=== PATIENT | female | born 1950 | race Caucasian/White ===

== ENCOUNTER 2017-02-23 13:37 | Emergency (ER) | payer OTHER, MEDICAID ==
[~2017-02-23] VITALS: Ht 157.5 cm; Wt 82.0 kg
[2017-02-23] MEDS ORDERED: SODIUM CHLORIDE 0.9% 1,000 ML IV ONE ×2 (14:43→16:30)
[2017-02-23] MEDS ORDERED: INSULIN REGULAR (HUMULIN R) 300UNITS/3ML SUBCUT ONE (14:45)
[2017-02-23 14:59] LABS: HEMATOCRIT. 38.9 % (36.0-48.0); HEMOGLOBIN. 12.7 g/dL (12.0-16.0); LYMPHOCYTES % 21.8 % (20.0-50.0); MEAN CORPUSCULAR HEMOGLOBIN 29.7 pg (28.0-32.0); MEAN CORPUSCULAR VOLUME 91.2 fL (81.0-99.0); MEAN PLATELET VOLUME 7.8 fl (7.4-10.4); MONOCYTES % 10.2 % (2.0-8.0); PLATELET 305 x1000/uL (130-400); RED BLOOD CELL COUNT 4.27 mill/uL (4.2-5.4); RED CELL DISTRIBUTION WIDTH 13.8 % (11.6-14.6)
[2017-02-23 15:11] LABS: CARBON DIOXIDE 29 mEq/L (21-32); CHLORIDE 101 mEq/L (98-107)
[2017-02-23 15:14] LABS: BETA HYDROXYBUTYRATE 0.1 mMol/L (0.0-0.3)
[2017-02-23 15:52] LABS: CLARITY URINE CLEAR (CLEAR); COLOR URINE YELLOW (YELLOW); GLUCOSE URINE 3+ (NEGATIVE); KETONES URINE NEGATIVE (NEGATIVE); LEUKOCYTE ESTERASE URINE 2+ (NEGATIVE); NITRITE URINE POSITIVE (NEGATIVE); OCCULT BLOOD URINE NEGATIVE (NEGATIVE); PH URINE 6.5 (4.5-8.0); PROTEIN URINE NEGATIVE (NEGATIVE); SPECIFIC GRAVITY URINE 1.029 (1.005-1.030); UROBILINOGEN URINE 0.2 E.U./dL (0.2-1.0)
[2017-02-23] MEDS ORDERED: CEFTRIAXONE 1 G PREMIX 50 ML IV ONE (16:30)
[2017-02-23 18:58] VITALS: BP 140/65
== END 2017-02-23 19:10 | disposition home or self-care (01) ==
LOC: ER 14:57
DX: E11.65 Type 2 diabetes mellitus with hyperglycemia (principal); N39.0 Urinary tract infection, site not specified; R21 Rash and other nonspecific skin eruption; Z98.890 Other specified postprocedural states
CPT/HCPCS: 36415; 80053; 81001; 82010; 82962; 85025; 87086; 87186; 93005; 96361; 96365; 96372; 99285; J0696; J1815; J7030; Z7610

== ENCOUNTER 2017-03-16 09:01 | Emergency (ER) | payer OTHER, MEDICARE, MEDICAID ==
[~2017-03-16] VITALS: Ht 154.9 cm; Wt 76.0 kg
[2017-03-16 10:16] LABS: CHLORIDE 106 mEq/L (98-107)
[2017-03-16 10:20] LABS: CARBON DIOXIDE 25 mEq/L (21-32)
[2017-03-16 10:22] LABS: BASOPHILS % 0.9 % (0.0-2.0); EOSINOPHILS % 2.2 % (0.0-5.0); HEMATOCRIT. 41.7 % (36.0-48.0); HEMOGLOBIN. 14.4 g/dL (12.0-16.0); LYMPHOCYTES % 27.6 % (20.0-50.0); MEAN CORPUSCULAR HEMOGLOBIN 30.3 pg (28.0-32.0); MEAN CORPUSCULAR VOLUME 87.7 fL (81.0-99.0); MEAN PLATELET VOLUME 8.5 fl (7.4-10.4); MONOCYTES % 7.4 % (2.0-8.0); NEUTROPHILS % 61.9 % (40.0-76.0); PLATELET 284 x1000/uL (130-400); RED BLOOD CELL COUNT 4.75 mill/uL (4.2-5.4); RED CELL DISTRIBUTION WIDTH 13.2 % (11.6-14.6)
[2017-03-16] MEDS ORDERED: SODIUM CHLORIDE 0.9% 1,000 ML IV ONE (10:23)
[2017-03-16] MEDS ORDERED: ACETAMINOPHEN 325MG TABLET PO STA (10:23)
[2017-03-16 10:24] LABS: CLARITY URINE CLOUDY (CLEAR); COLOR URINE YELLOW (YELLOW); GLUCOSE URINE 3+ (NEGATIVE); KETONES URINE NEGATIVE (NEGATIVE); LEUKOCYTE ESTERASE URINE 2+ (NEGATIVE); NITRITE URINE NEGATIVE (NEGATIVE); OCCULT BLOOD URINE 1+ (NEGATIVE); PROTEIN URINE NEGATIVE (NEGATIVE); SPECIFIC GRAVITY URINE 1.027 (1.005-1.030); UROBILINOGEN URINE 0.2 E.U./dL (0.2-1.0)
[2017-03-16 10:26] LABS: PROTHROMBIN TIME 9.9 sec
[2017-03-16] MEDS ORDERED: CEFTRIAXONE SODIUM 1 G/VIAL IV ONE (12:00)
[2017-03-16] MEDS ORDERED: CEFTRIAXONE 1 G PREMIX 50 ML IV ONE (12:15)
[2017-03-16 15:25] VITALS: BP 169/79
== END 2017-03-16 15:28 | disposition home or self-care (01) ==
LOC: ER 09:58
DX: N39.0 Urinary tract infection, site not specified (principal); R21 Rash and other nonspecific skin eruption; E78.00 Pure hypercholesterolemia, unspecified; E11.9 Type 2 diabetes mellitus without complications; I10 Essential (primary) hypertension
CPT/HCPCS: 36415; 71010; 80053; 81001; 82962; 83690; 85025; 85610; 93005; 93971; 96361; 96365; 96366; 99285; J0696; J7030; Z7610; A4315

== ENCOUNTER 2017-10-11 03:12 | Emergency (ER) | payer OTHER, MEDICAID ==
[~2017-10-11] VITALS: Ht 162.6 cm; Wt 77.0 kg
[2017-10-11] MEDS ORDERED: SODIUM CHLORIDE 0.9% 1,000 ML IV ONE (04:03)
[2017-10-11 04:27] LABS: BASOPHILS % 0.7 % (0.0-2.0); EOSINOPHILS % 2.2 % (0.0-5.0); HEMATOCRIT. 39.4 % (36.0-48.0); HEMOGLOBIN. 13.3 g/dL (12.0-16.0); LYMPHOCYTES % 25.7 % (20.0-50.0); MEAN CORPUSCULAR HEMOGLOBIN 29.1 pg (28.0-32.0); MEAN PLATELET VOLUME 8.3 fl (7.4-10.4); MONOCYTES % 6.8 % (2.0-8.0); NEUTROPHILS % 64.6 % (40.0-76.0); PLATELET 296 x1000/uL (130-400); RED BLOOD CELL COUNT 4.58 mill/uL (4.2-5.4); RED CELL DISTRIBUTION WIDTH 12.9 % (11.6-14.6)
[2017-10-11 04:56] LABS: BETA HYDROXYBUTYRATE 0.5 mMol/L (0.0-0.3); CARBON DIOXIDE 26 mEq/L (21-32); CHLORIDE 97 mEq/L (98-107)
[2017-10-11] MEDS ORDERED: INSULIN REGULAR (HUMULIN R) 300UNITS/3ML SUBCUT NR (05:30)
[2017-10-11 05:58] LABS: CLARITY URINE TURBID (CLEAR); COLOR URINE YELLOW (YELLOW); KETONES URINE TRACE (NEGATIVE); LEUKOCYTE ESTERASE URINE 2+ (NEGATIVE); NITRITE URINE NEGATIVE (NEGATIVE); OCCULT BLOOD URINE 2+ (NEGATIVE); PROTEIN URINE NEGATIVE (NEGATIVE); SPECIFIC GRAVITY URINE 1.036 (1.005-1.030); UROBILINOGEN URINE 0.2 E.U./dL (0.2-1.0)
[2017-10-11 09:09] VITALS: BP 127/75
== END 2017-10-11 09:23 | disposition home or self-care (01) ==
LOC: ER 03:12
DX: R53.1 Weakness (principal); R11.2 Nausea with vomiting, unspecified; E11.65 Type 2 diabetes mellitus with hyperglycemia; E78.00 Pure hypercholesterolemia, unspecified; I10 Essential (primary) hypertension; Z79.4 Long term (current) use of insulin; Z98.890 Other specified postprocedural states
CPT/HCPCS: 36415; 71045; 80053; 81001; 82010; 82962; 83690; 85025; 87086; 87106; 96360; 96361; 96372; 99285; J1815; J7030; Z7610

== ENCOUNTER 2018-04-27 06:51 | Emergency (ER) | payer OTHER, MEDICARE, MEDICAID ==
[~2018-04-27] VITALS: Ht 160 cm; Wt 68.0 kg
[2018-04-27] MEDS ORDERED: SODIUM CHLORIDE 0.9% 1,000 ML IV ONE ×2 (07:03→08:39)
[2018-04-27 07:25] LABS: BASOPHILS % 0.8 % (0.0-2.0); EOSINOPHILS % 2.5 % (0.0-5.0); HEMATOCRIT. 37.4 % (36.0-48.0); HEMOGLOBIN. 12.7 g/dL (12.0-16.0); LYMPHOCYTES % 24.5 % (20.0-50.0); MEAN CORPUSCULAR VOLUME 85.5 fL (81.0-99.0); MEAN PLATELET VOLUME 7.8 fl (7.4-10.4); MONOCYTES % 9.9 % (2.0-8.0); NEUTROPHILS % 62.3 % (40.0-76.0); PLATELET 356 x1000/uL (130-400); RED BLOOD CELL COUNT 4.38 mill/uL (4.2-5.4); RED CELL DISTRIBUTION WIDTH 13.8 % (11.6-14.6)
[2018-04-27 07:36] LABS: CHLORIDE 101 mEq/L (98-107)
[2018-04-27 07:44] LABS: BETA HYDROXYBUTYRATE 0.2 mMol/L (0.0-0.3)
[2018-04-27 09:59] LABS: CLARITY URINE TURBID (CLEAR); COLOR URINE YELLOW (YELLOW); KETONES URINE NEGATIVE (NEGATIVE); LEUKOCYTE ESTERASE URINE 3+ (NEGATIVE); NITRITE URINE POSITIVE (NEGATIVE); OCCULT BLOOD URINE 1+ (NEGATIVE); PH URINE 5.5 (4.5-8.0); PROTEIN URINE TRACE (NEGATIVE); UROBILINOGEN URINE 0.2 E.U./dL (0.2-1.0)
[2018-04-27] MEDS ORDERED: LEVOFLOXACIN 750MG PREMIX 150 ML IV ONE (11:00)
[2018-04-27] MEDS ORDERED: CEPHALEXIN 500MG CAPSULE PO ONE (12:00)
[2018-04-27 16:34] VITALS: BP 137/70
== END 2018-04-27 16:48 | disposition home or self-care (01) ==
LOC: ER 06:57
DX: E11.65 Type 2 diabetes mellitus with hyperglycemia (principal); N39.0 Urinary tract infection, site not specified; I10 Essential (primary) hypertension
CPT/HCPCS: 36415; 70450; 71045; 80053; 81003; 82010; 82962; 83690; 85025; 87077; 87086; 87186; 93005; 96365; 99285; J1956; J7030; Z7610

== ENCOUNTER 2019-03-13 07:55 | Emergency (ER) | payer OTHER, MEDICARE, MEDICAID ==
[~2019-03-13] VITALS: Ht 154.9 cm; Wt 79.0 kg
[2019-03-13] MEDS ORDERED: ONDANSETRON HCL 4MG/2ML INJ IV ONE (10:30)
[2019-03-13] MEDS ORDERED: MORPHINE SULFATE 4 MG/ML CPJ (NOT FOR IM USE) IV ONE ×2 (10:30→13:00)
[2019-03-13] MEDS ORDERED: CEFAZOLIN 1000MG PREMIX 50 ML IV ONE (10:30)
[2019-03-13 11:00] LABS: EOSINOPHILS % 2.6 % (0.0-5.0); HEMATOCRIT. 38.5 % (36.0-48.0); HEMOGLOBIN. 13.2 g/dL (12.0-16.0); LYMPHOCYTES % 26.6 % (20.0-50.0); MEAN CORPUSCULAR HEMOGLOBIN 28.9 pg (28.0-32.0); MEAN CORPUSCULAR VOLUME 84.2 fL (81.0-99.0); MEAN PLATELET VOLUME 8.2 fl (7.4-10.4); MONOCYTES % 8.9 % (2.0-8.0); NEUTROPHILS % 60.9 % (40.0-76.0); PLATELET 304 x1000/uL (130-400); RED BLOOD CELL COUNT 4.57 mill/uL (4.2-5.4); RED CELL DISTRIBUTION WIDTH 12.9 % (11.6-14.6)
[2019-03-13 11:04] LABS: CHLORIDE 98 mEq/L (98-107)
[2019-03-13] MEDS ORDERED: SODIUM CHLORIDE 0.9% 1,000 ML IV ONE (11:30)
[2019-03-13] MEDS ORDERED: INSULIN REGULAR (HUMULIN R) 300UNITS/3ML SUBCUT ONE (11:30)
[2019-03-13] MEDS ORDERED: BACITRACIN ZINC OINT UDPKT TOP ONE (13:45)
[2019-03-13 18:20] VITALS: BP 155/56
== END 2019-03-13 19:05 | disposition home or self-care (01) ==
LOC: ER 07:55
DX: M79.642 Pain in left hand (principal); E11.9 Type 2 diabetes mellitus without complications; I10 Essential (primary) hypertension; Z89.022 Acquired absence of left finger(s)
CPT/HCPCS: 36415; 80053; 82962; 85025; 96361; 96365; 96372; 96375; 96376; 99283; J0690; J1815; J2270; J2405; J7030

== ENCOUNTER 2019-03-18 08:52 | Emergency (ER) | payer OTHER, MEDICARE, MEDICAID ==
[~2019-03-18] VITALS: Ht 162.6 cm; Wt 68.0 kg
[2019-03-18] MEDS ORDERED: SODIUM CHLORIDE 0.9% 1,000 ML IV ONE (11:22)
[2019-03-18] MEDS ORDERED: IBUPROFEN 600MG TABLET PO STA (11:22)
[2019-03-18 12:15] LABS: BASOPHILS % 0.7 % (0.0-2.0); EOSINOPHILS % 2.4 % (0.0-5.0); HEMATOCRIT. 41.4 % (36.0-48.0); HEMOGLOBIN. 13.9 g/dL (12.0-16.0); LYMPHOCYTES % 26.3 % (20.0-50.0); MEAN CORPUSCULAR HEMOGLOBIN 28.5 pg (28.0-32.0); MEAN CORPUSCULAR VOLUME 84.7 fL (81.0-99.0); MEAN PLATELET VOLUME 7.9 fl (7.4-10.4); MONOCYTES % 6.1 % (2.0-8.0); NEUTROPHILS % 64.5 % (40.0-76.0); PLATELET 356 x1000/uL (130-400); RED BLOOD CELL COUNT 4.88 mill/uL (4.2-5.4); RED CELL DISTRIBUTION WIDTH 13.3 % (11.6-14.6)
[2019-03-18 12:17] LABS: CHLORIDE 103 mEq/L (98-107)
[2019-03-18 12:18] LABS: INR 0.9; PROTHROMBIN TIME 9.4 sec (9.6-11.0)
[2019-03-18 12:18] LABS: CLARITY URINE CLOUDY (CLEAR); COLOR URINE YELLOW (YELLOW); KETONES URINE NEGATIVE (NEGATIVE); LEUKOCYTE ESTERASE URINE 2+ (NEGATIVE); NITRITE URINE NEGATIVE (NEGATIVE); OCCULT BLOOD URINE TRACE (NEGATIVE); PROTEIN URINE TRACE (NEGATIVE); SPECIFIC GRAVITY URINE 1.016 (1.005-1.030); UROBILINOGEN URINE 0.2 E.U./dL (0.2-1.0)
[2019-03-18] MEDS ORDERED: INSULIN REGULAR 0.5UNIT/ML SYR(NEO) IV ONE (12:45)
[2019-03-18] MEDS ORDERED: INSULIN REGULAR (HUMULIN R) 300UNITS/3ML SUBCUT SCH (14:00)
[2019-03-18] MEDS ORDERED: CEPHALEXIN 250MG CAPSULE PO ONE (15:00)
[2019-03-18] MEDS ORDERED: BACITRACIN 15GM TUBE TOP ONE (15:00)
[2019-03-18 16:30] VITALS: BP 143/60
== END 2019-03-18 16:50 | disposition home or self-care (01) ==
LOC: ER 08:52
DX: N39.0 Urinary tract infection, site not specified (principal); E11.65 Type 2 diabetes mellitus with hyperglycemia; L98.498 Non-pressure chronic ulcer of skin of other sites with other specified severity; I10 Essential (primary) hypertension; Z88.1 Allergy status to other antibiotic agents
CPT/HCPCS: 36415; 71045; 73130; 80053; 81003; 82962; 83605; 85025; 85610; 87040; 87077; 87086; 87186; 93005; 96360; 96372; 99284; J1815; J7030; 96361

== ENCOUNTER 2019-03-29 01:20 | Inpatient (IN) | payer OTHER, MEDICARE, MEDICAID ==
[~2019-03-29] VITALS: Ht 154.9 cm; Wt 70.3 kg
[2019-03-29] MEDS ORDERED: SODIUM CHLORIDE 0.9% 1,000 ML IV ONE ×2 (01:57→03:15)
[2019-03-29] MEDS ORDERED: ASPIRIN 81MG TABLET PO ONE (02:00)
[2019-03-29] MEDS ORDERED: NITROGLYCERIN 0.4MG TABLET SL SL PRN ×2 (02:00→07:30)
[2019-03-29 02:15] LABS: CLARITY URINE CLEAR (CLEAR); COLOR URINE YELLOW (YELLOW); KETONES URINE NEGATIVE (NEGATIVE); LEUKOCYTE ESTERASE URINE 1+ (NEGATIVE); NITRITE URINE NEGATIVE (NEGATIVE); OCCULT BLOOD URINE TRACE (NEGATIVE); PROTEIN URINE NEGATIVE (NEGATIVE); SPECIFIC GRAVITY URINE 1.019 (1.005-1.030); UROBILINOGEN URINE 0.2 E.U./dL (0.2-1.0)
[2019-03-29 02:33] LABS: EOSINOPHILS % 2.7 % (0.0-5.0); HEMATOCRIT. 36.4 % (36.0-48.0); HEMOGLOBIN. 12.2 g/dL (12.0-16.0); LYMPHOCYTES % 29.3 % (20.0-50.0); MEAN CORPUSCULAR HEMOGLOBIN 28.5 pg (28.0-32.0); MEAN CORPUSCULAR VOLUME 85.5 fL (81.0-99.0); MONOCYTES % 7.3 % (2.0-8.0); NEUTROPHILS % 59.7 % (40.0-76.0); PLATELET 341 x1000/uL (130-400); RED BLOOD CELL COUNT 4.26 mill/uL (4.2-5.4); RED CELL DISTRIBUTION WIDTH 13.1 % (11.6-14.6)
[2019-03-29 02:39] LABS: CHLORIDE 104 mEq/L (98-107)
[2019-03-29 02:48] LABS: BETA HYDROXYBUTYRATE 0.1 mMol/L (0.0-0.3)
[2019-03-29] MEDS ORDERED: IPRATROPIUM/ALBUTEROL 0.5-3(2.5)MG/3ML NEB INH PRN (07:30)
[2019-03-29] MEDS ORDERED: DOCUSATE SODIUM 100MG CAPSULE PO PRN (07:30)
[2019-03-29] MEDS ORDERED: ONDANSETRON HCL 4MG/2ML INJ IV PRN (07:30)
[2019-03-29] MEDS ORDERED: DEXTROSE 50% WATER 50ML SYRINGE IV PRN (07:30)
[2019-03-29] MEDS ORDERED: ACETAMINOPHEN 325MG TABLET PO PRN (07:30)
[2019-03-29] MEDS ORDERED: MAGNESIUM/ALUMINUM HYDROXIDE/SIMETHICONE 30ML UDC PO PRN (07:30)
[2019-03-29] MEDS ORDERED: GUAIFENESIN 200MG/10ML SUGAR FREE UDC PO PRN (07:30)
[2019-03-29 08:00] VITALS: BP 141/63
[2019-03-29] MEDS: ENOXAPARIN 40MG/0.4ML SYR SUBCUT SCH (08:40)
[2019-03-29] MEDS: ASPIRIN 325MG EC TABLET PO SCH (08:40)
[2019-03-29] MEDS: ASCORBIC ACID 500 MG TABLET PO SCH ×2 (08:40→22:52)
[2019-03-29] MEDS: ZINC SULFATE 220 MG ( 50 ) CAPSULE PO SCH (08:41)
[2019-03-29] MEDS: LOSARTAN POTASSIUM 100 MG TABLET PO SCH (08:41)
[2019-03-29] MEDS: FAMOTIDINE 20MG TABLET PO SCH ×2 (08:41→22:52)
[2019-03-29] MEDS ORDERED: CEFTRIAXONE 1 G PREMIX 50 ML IV SCH (09:00)
[2019-03-29] MEDS ORDERED: VANCOMYCIN 1250MG in DEXTROSE 5% WATER 250ML IV SCH (10:00)
[2019-03-29] MEDS: INSULIN GLARGINE UD 100 UNITS/ML SYR SUBCUT SCH (10:17)
[2019-03-29] MEDS: INSULIN LISPRO 100 UNITS/ML SUBCUT SCH ×4 (10:17→22:59)
[2019-03-29] MEDS: SODIUM CHLORIDE 0.9% 1,000 ML IV SCH ×2 (10:33→23:25)
[2019-03-29] MEDS: PIPERACILLIN/TAZ 3.375G PREMIX 50 ML IV SCH ×3 (10:33→17:46)
[2019-03-29 10:39] VITALS: BP 141/63
[2019-03-29 10:44] LABS: T4 FREE 1.03 ng/dL (0.76-1.46)
[2019-03-29] MEDS: BLOOD SUGAR DIAGNOSTIC STRIP TEST SCH ×3 (11:46→21:16)
[2019-03-29 12:00] VITALS: BP 97/49
[2019-03-29] MEDS ORDERED: DIPHENHYDRAMINE 25MG CAPSULE PO PRN (13:00)
[2019-03-29 14:46] LABS: *AMPHETAMINES SCREEN URINE NEGATIVE (NEGATIVE); *BARBITURATES SCREEN URINE NEGATIVE (NEGATIVE); *BENZODIAZEPINES SCREEN URINE NEGATIVE (NEGATIVE)
[2019-03-29 14:47] LABS: *COCAINE SCREEN URINE NEGATIVE (NEGATIVE); CANNABINOID URINE SCREEN NEGATIVE (NEGATIVE); METHADONE URINE SCREEN NEGATIVE (NEGATIVE); OPIATES URINE SCREEN NEGATIVE (NEGATIVE); PHENCYCLIDINE URINE SCREEN NEGATIVE (NEGATIVE)
[2019-03-29 15:47] LABS: CREATINE KINASE 49 IU/L (26-192)
[2019-03-29 16:00] VITALS: BP 157/76
[2019-03-29 20:43] VITALS: BP 137/62
[2019-03-29] MEDS ORDERED: ZOLPIDEM TARTRATE 5MG TABLET PO PRN (21:00)
[2019-03-29] MEDS ORDERED: IOHEXOL-350 100 ML BOTTLE ONE (21:27)
[2019-03-29] MEDS: TRAMADOL 50MG TABLET PO PRN (22:53)
[2019-03-29] MEDS: VANCOMYCIN 750 MG PREMIX 150 ML IV SCH (23:51)
[2019-03-30 00:02] VITALS: BP 132/49
[2019-03-30 00:50] LABS: CREATINE KINASE 42 IU/L (26-192)
[2019-03-30 00:51] LABS: CREATINE KINASE MB FRACTION 1.9 ng/mL (0.5-3.6)
[2019-03-30] MEDS: PIPERACILLIN/TAZ 3.375G PREMIX 50 ML IV SCH ×5 (01:34→23:57)
[2019-03-30 04:00] VITALS: BP 118/64
[2019-03-30] MEDS: BLOOD SUGAR DIAGNOSTIC STRIP TEST SCH ×4 (06:24→21:39)
[2019-03-30] MEDS: INSULIN LISPRO 100 UNITS/ML SUBCUT SCH ×4 (06:36→21:00)
[2019-03-30] MEDS: TRAMADOL 50MG TABLET PO PRN (06:42)
[2019-03-30 08:00] VITALS: BP 137/66
[2019-03-30] MEDS: ASPIRIN 325MG EC TABLET PO SCH (09:40)
[2019-03-30] MEDS: ZINC SULFATE 220 MG ( 50 ) CAPSULE PO SCH (09:40)
[2019-03-30] MEDS: ASCORBIC ACID 500 MG TABLET PO SCH ×2 (09:40→21:42)
[2019-03-30] MEDS: FAMOTIDINE 20MG TABLET PO SCH ×2 (09:40→21:42)
[2019-03-30] MEDS: LOSARTAN POTASSIUM 100 MG TABLET PO SCH (09:40)
[2019-03-30] MEDS: ENOXAPARIN 40MG/0.4ML SYR SUBCUT SCH (09:41)
[2019-03-30] MEDS: VANCOMYCIN 750 MG PREMIX 150 ML IV SCH ×2 (09:41→21:42)
[2019-03-30] MEDS: INSULIN GLARGINE UD 100 UNITS/ML SYR SUBCUT SCH (09:43)
[2019-03-30 12:00] VITALS: BP 151/68
[2019-03-30 16:00] VITALS: BP 126/65
[2019-03-30 20:10] VITALS: BP 144/66
[2019-03-31] VITALS: BP 107/88
[2019-03-31 04:00] VITALS: BP 150/57
[2019-03-31] MEDS: PIPERACILLIN/TAZ 3.375G PREMIX 50 ML IV SCH ×3 (06:28→18:19)
[2019-03-31] MEDS: SODIUM CHLORIDE 0.9% 1,000 ML IV SCH ×3 (06:31→13:20)
[2019-03-31] MEDS: BLOOD SUGAR DIAGNOSTIC STRIP TEST SCH ×4 (06:38→21:14)
[2019-03-31] MEDS: INSULIN LISPRO 100 UNITS/ML SUBCUT SCH ×4 (06:38→21:14)
[2019-03-31 06:47] LABS: BASOPHILS % 0.7 % (0.0-2.0); EOSINOPHILS % 3.9 % (0.0-5.0); HEMOGLOBIN. 11.1 g/dL (12.0-16.0); LYMPHOCYTES % 27.7 % (20.0-50.0); MEAN CORPUSCULAR HEMOGLOBIN 28.9 pg (28.0-32.0); MEAN CORPUSCULAR VOLUME 86.2 fL (81.0-99.0); MEAN PLATELET VOLUME 8.3 fl (7.4-10.4); MONOCYTES % 7.2 % (2.0-8.0); NEUTROPHILS % 60.5 % (40.0-76.0); PLATELET 326 x1000/uL (130-400); RED BLOOD CELL COUNT 3.83 mill/uL (4.2-5.4); RED CELL DISTRIBUTION WIDTH 13.6 % (11.6-14.6)
[2019-03-31 06:57] LABS: CHLORIDE 110 mEq/L (98-107)
[2019-03-31 08:00] VITALS: BP 162/89
[2019-03-31] MEDS: FAMOTIDINE 20MG TABLET PO SCH ×2 (09:00→21:11)
[2019-03-31] MEDS: VANCOMYCIN 750 MG PREMIX 150 ML IV SCH (09:13)
[2019-03-31] MEDS: ENOXAPARIN 40MG/0.4ML SYR SUBCUT SCH (09:14)
[2019-03-31] MEDS: INSULIN GLARGINE UD 100 UNITS/ML SYR SUBCUT SCH (09:15)
[2019-03-31] MEDS: ASCORBIC ACID 500 MG TABLET PO SCH ×2 (09:16→21:11)
[2019-03-31] MEDS: ZINC SULFATE 220 MG ( 50 ) CAPSULE PO SCH (09:16)
[2019-03-31] MEDS: ASPIRIN 325MG EC TABLET PO SCH (09:16)
[2019-03-31] MEDS: LOSARTAN POTASSIUM 100 MG TABLET PO SCH (09:16)
[2019-03-31 12:00] VITALS: BP 169/83
[2019-03-31 16:00] VITALS: BP 143/81
[2019-03-31] MEDS: VANCOMYCIN 500 MG PREMIX 100 ML IV SCH (17:08)
[2019-03-31 20:00] VITALS: BP 172/83
[2019-03-31] MEDS: CLONIDINE 0.1MG TABLET PO PRN (21:11)
[2019-04-01] VITALS: BP 122/41
[2019-04-01] MEDS: SODIUM CHLORIDE 0.9% 1,000 ML IV SCH ×2 (02:40→17:35)
[2019-04-01 04:00] VITALS: BP 120/56
[2019-04-01] MEDS: PIPERACILLIN/TAZ 3.375G PREMIX 50 ML IV SCH ×4 (04:38→17:32)
[2019-04-01] MEDS: INSULIN LISPRO 100 UNITS/ML SUBCUT SCH ×4 (06:31→22:14)
[2019-04-01] MEDS: BLOOD SUGAR DIAGNOSTIC STRIP TEST SCH ×4 (06:31→21:00)
[2019-04-01] MEDS: VANCOMYCIN 500 MG PREMIX 100 ML IV SCH ×2 (06:39→17:32)
[2019-04-01 08:00] VITALS: BP 146/83
[2019-04-01] MEDS: ASPIRIN 325MG EC TABLET PO SCH (08:23)
[2019-04-01] MEDS: TRAMADOL 50MG TABLET PO PRN ×2 (08:23→13:41)
[2019-04-01] MEDS: ASCORBIC ACID 500 MG TABLET PO SCH ×2 (08:24→21:50)
[2019-04-01] MEDS: FAMOTIDINE 20MG TABLET PO SCH ×2 (08:24→21:50)
[2019-04-01] MEDS: ENOXAPARIN 40MG/0.4ML SYR SUBCUT SCH (08:25)
[2019-04-01] MEDS: LOSARTAN POTASSIUM 100 MG TABLET PO SCH (08:25)
[2019-04-01] MEDS: ZINC SULFATE 220 MG ( 50 ) CAPSULE PO SCH (08:31)
[2019-04-01] MEDS: INSULIN GLARGINE UD 100 UNITS/ML SYR SUBCUT SCH (10:34)
[2019-04-01] MEDS: MUPIROCIN 2% OINT 22GM TOP SCH (10:34)
[2019-04-01 12:00] VITALS: BP 131/69
[2019-04-01] MEDS ORDERED: LIDOCAINE HCL/EPINEPHRINE 1%-EPI 1:100,000 30 ML VIAL INFIL SCH (13:30)
[2019-04-01] MEDS ORDERED: LIDOCAINE HCL/EPINEPHRINE 1%-EPI 1:100,000 20 ML VIAL INFIL NR (15:00)
[2019-04-01 16:00] VITALS: BP 144/69
[2019-04-01 20:00] VITALS: BP 162/66
[2019-04-01] MEDS: CLONIDINE 0.1MG TABLET PO PRN (22:10)
[2019-04-02] VITALS: BP 142/68
[2019-04-02] MEDS: PIPERACILLIN/TAZ 3.375G PREMIX 50 ML IV SCH ×5 (01:16→23:08)
[2019-04-02 04:00] VITALS: BP 130/57
[2019-04-02] MEDS: TRAMADOL 50MG TABLET PO PRN ×3 (04:13→23:18)
[2019-04-02] MEDS: SODIUM CHLORIDE 0.9% 1,000 ML IV SCH ×2 (04:34→17:51)
[2019-04-02] MEDS: VANCOMYCIN 500 MG PREMIX 100 ML IV SCH ×2 (06:20→17:51)
[2019-04-02] MEDS: BLOOD SUGAR DIAGNOSTIC STRIP TEST SCH ×4 (06:32→20:08)
[2019-04-02] MEDS: INSULIN LISPRO 100 UNITS/ML SUBCUT SCH ×4 (06:32→20:08)
[2019-04-02 08:00] VITALS: BP 156/80
[2019-04-02] MEDS: LOSARTAN POTASSIUM 100 MG TABLET PO SCH (09:45)
[2019-04-02] MEDS: FAMOTIDINE 20MG TABLET PO SCH ×2 (09:45→20:05)
[2019-04-02] MEDS: ASCORBIC ACID 500 MG TABLET PO SCH ×2 (09:45→20:05)
[2019-04-02] MEDS: ENOXAPARIN 40MG/0.4ML SYR SUBCUT SCH (09:45)
[2019-04-02] MEDS: ZINC SULFATE 220 MG ( 50 ) CAPSULE PO SCH (09:45)
[2019-04-02] MEDS: MUPIROCIN 2% OINT 22GM TOP SCH (09:48)
[2019-04-02] MEDS: ASPIRIN 325MG EC TABLET PO SCH (09:53)
[2019-04-02] MEDS: INSULIN GLARGINE UD 100 UNITS/ML SYR SUBCUT SCH (09:53)
[2019-04-02 12:00] VITALS: BP 157/64
[2019-04-02 16:00] VITALS: BP 159/88
[2019-04-02 20:00] VITALS: BP 164/74
[2019-04-03] VITALS: BP 136/60
[2019-04-03 04:00] VITALS: BP 126/65
[2019-04-03] MEDS: VANCOMYCIN 500 MG PREMIX 100 ML IV SCH (05:13)
[2019-04-03] MEDS: PIPERACILLIN/TAZ 3.375G PREMIX 50 ML IV SCH (05:15)
[2019-04-03] MEDS: TRAMADOL 50MG TABLET PO PRN (05:39)
[2019-04-03] MEDS: BLOOD SUGAR DIAGNOSTIC STRIP TEST SCH (06:48)
[2019-04-03] MEDS: INSULIN LISPRO 100 UNITS/ML SUBCUT SCH (06:52)
[2019-04-03 08:00] VITALS: BP 183/88
[2019-04-03] MEDS: LOSARTAN POTASSIUM 100 MG TABLET PO SCH (08:18)
[2019-04-03] MEDS: ASPIRIN 325MG EC TABLET PO SCH (08:18)
[2019-04-03] MEDS: ASCORBIC ACID 500 MG TABLET PO SCH (08:18)
[2019-04-03] MEDS: ZINC SULFATE 220 MG ( 50 ) CAPSULE PO SCH (08:19)
[2019-04-03] MEDS: CLONIDINE 0.1MG TABLET PO PRN (08:19)
[2019-04-03] MEDS: FAMOTIDINE 20MG TABLET PO SCH (08:19)
[2019-04-03] MEDS: ENOXAPARIN 40MG/0.4ML SYR SUBCUT SCH (08:19)
[2019-04-03] MEDS: MUPIROCIN 2% OINT 22GM TOP SCH (09:34)
[2019-04-03] MEDS: INSULIN GLARGINE UD 100 UNITS/ML SYR SUBCUT SCH (09:35)
[2019-04-03 10:38] VITALS: BP 172/90
[2019-04-03 11:57] VITALS: BP 172/90
== END 2019-04-03 12:43 | disposition home health service (06) | DRG 854 ==
LOC: ER 01:20 → 8WST 03:16 → ENRESERV 04:54
PROVIDERS: ADMIT Internal Medicine; ATTEND Internal Medicine
PROC: 0JBK0ZZ Excision of Left Hand Subcutaneous Tissue and Fascia, Open Approach (ICD-10-PCS; principal; 2019-04-01)
PROC: 0JBK0ZZ Excision of Left Hand Subcutaneous Tissue and Fascia, Open Approach (ICD-10-PCS; 2019-04-01)
PROC: 0JBJ0ZZ Excision of Right Hand Subcutaneous Tissue and Fascia, Open Approach (ICD-10-PCS; 2019-04-01)
DX: A41.9 Sepsis, unspecified organism (principal); N39.0 Urinary tract infection, site not specified; E44.0 Moderate protein-calorie malnutrition; R65.20 Severe sepsis without septic shock; E11.65 Type 2 diabetes mellitus with hyperglycemia; Z79.4 Long term (current) use of insulin; S81.812A Laceration without foreign body, left lower leg, initial encounter; S81.811A Laceration without foreign body, right lower leg, initial encounter; X58.XXXA Exposure to other specified factors, initial encounter; S61.204A Unspecified open wound of right ring finger without damage to nail, initial encounter; S61.203A Unspecified open wound of left middle finger without damage to nail, initial encounter; S61.207A Unspecified open wound of left little finger without damage to nail, initial encounter; E11.51 Type 2 diabetes mellitus with diabetic peripheral angiopathy without gangrene; E11.42 Type 2 diabetes mellitus with diabetic polyneuropathy; R07.89 Other chest pain; E66.01 Morbid (severe) obesity due to excess calories; E78.5 Hyperlipidemia, unspecified; I10 Essential (primary) hypertension; I25.2 Old myocardial infarction; Z83.3 Family history of diabetes mellitus; Z86.14 Personal history of Methicillin resistant Staphylococcus aureus infection; Z79.84 Long term (current) use of oral hypoglycemic drugs; Z68.29 Body mass index [BMI] 29.0-29.9, adult; Z88.1 Allergy status to other antibiotic agents; Z89.022 Acquired absence of left finger(s); Y93.89 Activity, other specified; Y92.89 Other specified places as the place of occurrence of the external cause; Y99.8 Other external cause status
CPT/HCPCS: 36415; 71045; 71275; 73220; 80048; 80061; 80202; 80305; 82010; 82550; 82553; 82962; 83036; 83605; 83880; 84134; 84439; 84443; 84484; 85379; 87493; 93005; 93306; 93970; 96374; 99285; C1893; J0696; J1650; J1815; J2543; J3370; J3490; J7030; J7060; J7620; Q0163; Q9967

== ENCOUNTER 2019-04-10 04:36 | Inpatient (IN) | payer OTHER, MEDICARE, MEDICAID ==
[~2019-04-10] VITALS: Ht 154.9 cm; Wt 73.9 kg
[2019-04-10] MEDS ORDERED: ONDANSETRON HCL 4MG/2ML INJ IV STA (05:17)
[2019-04-10] MEDS ORDERED: MORPHINE SULFATE 4 MG/ML CPJ (NOT FOR IM USE) IV STA (05:17)
[2019-04-10] MEDS ORDERED: SODIUM CHLORIDE 0.9% 1,000 ML IV ONE (05:17)
[2019-04-10 05:53] LABS: BASOPHILS % 1.1 % (0.0-2.0); EOSINOPHILS % 3.6 % (0.0-5.0); HEMATOCRIT. 32.9 % (36.0-48.0); HEMOGLOBIN. 11.2 g/dL (12.0-16.0); MEAN CORPUSCULAR HEMOGLOBIN 29.6 pg (28.0-32.0); MEAN CORPUSCULAR VOLUME 86.9 fL (81.0-99.0); MEAN PLATELET VOLUME 8.3 fl (7.4-10.4); MONOCYTES % 8.6 % (2.0-8.0); NEUTROPHILS % 57.7 % (40.0-76.0); PLATELET 335 x1000/uL (130-400); RED BLOOD CELL COUNT 3.78 mill/uL (4.2-5.4); RED CELL DISTRIBUTION WIDTH 13.9 % (11.6-14.6)
[2019-04-10 06:00] LABS: CHLORIDE 107 mEq/L (98-107)
[2019-04-10] MEDS ORDERED: DIPHENHYDRAMINE 50MG/ML VIAL IV ONE (06:00)
[2019-04-10] MEDS ORDERED: IOHEXOL-300 100 ML BOTTLE ONE (06:47)
[2019-04-10 08:54] LABS: CLARITY URINE CLEAR (CLEAR); COLOR URINE YELLOW (YELLOW); KETONES URINE NEGATIVE (NEGATIVE); LEUKOCYTE ESTERASE URINE NEGATIVE (NEGATIVE); NITRITE URINE NEGATIVE (NEGATIVE); OCCULT BLOOD URINE NEGATIVE (NEGATIVE); PROTEIN URINE NEGATIVE (NEGATIVE); SPECIFIC GRAVITY URINE 1.035 (1.005-1.030); UROBILINOGEN URINE 0.2 E.U./dL (0.2-1.0)
[2019-04-10] MEDS ORDERED: TRAMADOL 50MG TABLET PO PRN (13:30)
[2019-04-10] MEDS ORDERED: ONDANSETRON HCL 4MG/2ML INJ IV PRN (13:30)
[2019-04-10] MEDS ORDERED: ZOLPIDEM TARTRATE 5MG TABLET PO PRN (13:30)
[2019-04-10] MEDS ORDERED: GUAIFENESIN 200MG/10ML SUGAR FREE UDC PO PRN (13:30)
[2019-04-10] MEDS ORDERED: DOCUSATE SODIUM 100MG CAPSULE PO PRN (13:30)
[2019-04-10] MEDS ORDERED: CLONIDINE 0.1MG TABLET PO PRN (13:30)
[2019-04-10] MEDS ORDERED: NITROGLYCERIN 0.4MG TABLET SL SL PRN (13:30)
[2019-04-10] MEDS ORDERED: IPRATROPIUM/ALBUTEROL 0.5-3(2.5)MG/3ML NEB INH PRN (13:30)
[2019-04-10] MEDS ORDERED: LORAZEPAM 0.5MG TABLET PO PRN (13:30)
[2019-04-10] MEDS ORDERED: FLUCONAZOLE 100MG TABLET PO NR (13:30)
[2019-04-10] MEDS ORDERED: ACETAMINOPHEN 325MG TABLET PO PRN (13:30)
[2019-04-10] MEDS ORDERED: DEXTROSE 50% WATER 50ML SYRINGE IV PRN (13:30)
[2019-04-10] MEDS ORDERED: MAGNESIUM/ALUMINUM HYDROXIDE/SIMETHICONE 30ML UDC PO PRN (13:30)
[2019-04-10 16:24] VITALS: BP 131/48
[2019-04-10] MEDS: METOCLOPRAMIDE 10MG/10 ML UDC PO SCH (17:36)
[2019-04-10] MEDS: SUCRALFATE 1 G/10 ML UDC PO SCH ×2 (17:37→20:27)
[2019-04-10] MEDS: AMLODIPINE 10MG TABLET PO SCH (17:37)
[2019-04-10] MEDS: BLOOD SUGAR DIAGNOSTIC STRIP TEST SCH ×2 (17:38→21:23)
[2019-04-10] MEDS: SODIUM CHLORIDE 0.9% 1,000 ML IV SCH (17:38)
[2019-04-10] MEDS: ENOXAPARIN 40MG/0.4ML SYR SUBCUT SCH (17:38)
[2019-04-10] MEDS: KETOROLAC 15MG/ML VIAL IV PRN (18:06)
[2019-04-10] MEDS: INSULIN LISPRO 100 UNITS/ML SUBCUT SCH ×2 (18:14→21:38)
[2019-04-10] MEDS ORDERED: INSLIS SUBCUT (18:17)
[2019-04-10] MEDS ORDERED: LISI2.5T47 MT (18:18)
[2019-04-10 20:00] VITALS: BP 96/43
[2019-04-10] MEDS: ASCORBIC ACID 500 MG TABLET PO SCH (20:27)
[2019-04-10] MEDS ORDERED: ATORVASTATIN CALCIUM 20MG TABLET PO SCH (21:00)
[2019-04-10] MEDS ORDERED: INSULIN GLARGINE UD 100 UNITS/ML SYR SUBCUT SCH (22:00)
[2019-04-11] VITALS: BP 95/41
[2019-04-11 04:00] VITALS: BP 108/46
[2019-04-11] MEDS: SODIUM CHLORIDE 0.9% 1,000 ML IV SCH ×2 (06:16→18:09)
[2019-04-11] MEDS: METOCLOPRAMIDE 10MG/10 ML UDC PO SCH ×3 (06:21→16:05)
[2019-04-11] MEDS: SUCRALFATE 1 G/10 ML UDC PO SCH ×3 (06:21→16:05)
[2019-04-11] MEDS: BLOOD SUGAR DIAGNOSTIC STRIP TEST SCH ×3 (06:21→18:09)
[2019-04-11 08:00] VITALS: BP 104/58
[2019-04-11] MEDS: INSULIN LISPRO 100 UNITS/ML SUBCUT SCH ×3 (08:01→18:09)
[2019-04-11] MEDS: AMLODIPINE 10MG TABLET PO SCH (08:34)
[2019-04-11 08:36] LABS: *AMPHETAMINES SCREEN URINE NEGATIVE (NEGATIVE); *BARBITURATES SCREEN URINE NEGATIVE (NEGATIVE); *BENZODIAZEPINES SCREEN URINE NEGATIVE (NEGATIVE); *COCAINE SCREEN URINE NEGATIVE (NEGATIVE); METHADONE URINE SCREEN NEGATIVE (NEGATIVE)
[2019-04-11 08:37] LABS: CANNABINOID URINE SCREEN NEGATIVE (NEGATIVE); OPIATES URINE SCREEN PRESUMTIVE POSITIVE (NEGATIVE); PHENCYCLIDINE URINE SCREEN NEGATIVE (NEGATIVE)
[2019-04-11] MEDS: ASCORBIC ACID 500 MG TABLET PO SCH (08:44)
[2019-04-11] MEDS: KETOROLAC 15MG/ML VIAL IV PRN (08:46)
[2019-04-11] MEDS ORDERED: FLUCONAZOLE 100MG TABLET PO SCH (09:00)
[2019-04-11] MEDS ORDERED: PANTOPRAZOLE SODIUM 40 MG/VIAL IV SCH (09:00)
[2019-04-11] MEDS ORDERED: ZINC SULFATE 220 MG ( 50 ) CAPSULE PO SCH (09:00)
[2019-04-11 12:00] VITALS: BP 154/75
[2019-04-11] MEDS ORDERED: NEOMY SULF/BACITRAC ZN/POLY OINT 28GM TOP SCH (15:00)
[2019-04-11 16:00] VITALS: BP 117/57
[2019-04-11] MEDS: ENOXAPARIN 40MG/0.4ML SYR SUBCUT SCH (16:05)
[2019-04-11 18:53] VITALS: BP 112/76
== END 2019-04-11 21:10 | DRG 391 ==
LOC: ER 04:36 → 6EST 12:21 → ENRESERV 14:20
PROVIDERS: ADMIT Internal Medicine; ATTEND Internal Medicine
DX: K31.84 Gastroparesis (principal); K55.059 Acute (reversible) ischemia of intestine, part and extent unspecified; E44.1 Mild protein-calorie malnutrition; N39.0 Urinary tract infection, site not specified; D63.8 Anemia in other chronic diseases classified elsewhere; E11.65 Type 2 diabetes mellitus with hyperglycemia; K29.70 Gastritis, unspecified, without bleeding; S81.812A Laceration without foreign body, left lower leg, initial encounter; S81.811A Laceration without foreign body, right lower leg, initial encounter; W18.39XA Other fall on same level, initial encounter; E11.43 Type 2 diabetes mellitus with diabetic autonomic (poly)neuropathy; M34.9 Systemic sclerosis, unspecified; Z79.4 Long term (current) use of insulin; Y93.89 Activity, other specified; Y92.89 Other specified places as the place of occurrence of the external cause; Y99.8 Other external cause status; Z79.899 Other long term (current) drug therapy; Z68.30 Body mass index [BMI] 30.0-30.9, adult; Z88.1 Allergy status to other antibiotic agents; Z89.022 Acquired absence of left finger(s)
CPT/HCPCS: 36415; 71045; 74177; 76705; 80061; 80305; 81003; 82962; 83036; 83605; 93005; 93970; 96361; 96374; 96375; 96376; 97162; 97165; 99285; C9113; J1200; J1650; J1815; J1885; J2270; J2405; J7030; J8597; Q9967